=== PATIENT | male | born 1965 | race Caucasian/White ===

== ENCOUNTER 2016-09-10 13:58 | Emergency (ER) | payer MEDICARE ==
[2016-09-10 14:45] LABS: APPEARANCE CLEAR (CLEAR); BILIRUBIN NEGATIVE (NEGATIVE); COLOR YELLOW (YELLOW); GLUCOSE NEGATIVE (NEGATIVE); KETONE NEGATIVE (NEGATIVE); LEUKOCYTE ESTERASE NEGATIVE (NEGATIVE); NITRITE NEGATIVE (NEGATIVE); PROTEIN NEGATIVE (NEGATIVE); SPECIFIC GRAVITY 1.015 (1.005-1.020); UROBILINOGEN NORMAL (NORMAL)
[2016-09-10 14:46] LABS: BASOPHILS 0.7 % (0.0-2.0); EOSINOPHILS 1.3 % (0-7); HEMATOCRIT 45.6 % (42.0-54.0); HEMOGLOBIN 15.1 g/dL (13.5-17.5); IMMATURE GRANULOCYTES 0.5 % (0-5); LYMPHOCYTES 15.3 % (15-50); MCH 29.9 pg (26.0-34.0); MCHC 33.1 g/dL (31.0-37.0); MCV 90.3 fL (80.0-100.0); MEAN PLATELET VOLUME 8.8 fL (7.4-10.4); MONOCYTES 5.8 % (2-11); NEUTROPHILS 76.4 % (40-80); PLATELET COUNT 186 10x3/uL (130-400); RBC 5.05 10x6/uL (4.20-6.10); RDW 13.9 % (11.5-14.5); WBC 7.5 10x3/uL (4.8-10.8)
[2016-09-10 15:01] LABS: ALBUMIN 3.3 g/dL (3.4-5.0); ANION GAP 15.4 mmol/L (8-16); BILIRUBIN - TOTAL 0.27 mg/dL (0.2-1.3); CARBON DIOXIDE 24.1 mmol/L (21.0-32.0); CREATININE - SERUM 1.1 mg/dL (0.6-1.3); POTASSIUM - SERUM 3.5 mmol/L (3.5-5.1); PROTEIN - SERUM 6.9 g/dL (6.4-8.2)
[2016-09-10 15:03] LABS: UDS - AMPHET NEGATIVE QUAL (NEGATIVE); UDS - BARB NEGATIVE QUAL (NEGATIVE); UDS - BENZO POSITIVE QUAL (NEGATIVE); UDS - COCAINE NEGATIVE QUAL (NEGATIVE); UDS - METH NEGATIVE QUAL (NEGATIVE); UDS - OPIATE NEGATIVE QUAL (NEGATIVE); UDS - PCP NEGATIVE QUAL (NEGATIVE); UDS - THC NEGATIVE QUAL (NEGATIVE)
== END 2016-09-10 15:45 | disposition home or self-care (01) ==
LOC: D.ER 13:58
PROVIDERS: Emergency Medicine
DX: Z03.89 Encounter for observation for other suspected diseases and conditions ruled out (principal); F41.9 Anxiety disorder, unspecified; M54.9 Dorsalgia, unspecified; B20 Human immunodeficiency virus [HIV] disease

== ENCOUNTER 2017-04-10 13:37 | Emergency (ER) | payer MEDICARE ==
[2017-04-10 14:03] LABS: BASOPHILS 0.8 % (0-2); EOSINOPHILS 1.4 % (0-7); HEMOGLOBIN 16.9 g/dL (13.5-17.5); IMMATURE GRANULOCYTES 0.3 % (0-5); LYMPHOCYTES 23.9 % (15-50); MCH 31.9 pg (26.0-34.0); MCHC 34.5 g/dL (31.0-37.0); MCV 92.5 fL (80.0-100.0); MEAN PLATELET VOLUME 8.6 fL (7.4-10.4); MONOCYTES 7.6 % (2-11); PLATELET COUNT 223 10x3/uL (130-400); RDW 13.7 % (11.5-14.5); WBC 7.7 10x3/uL (4.8-10.8)
[2017-04-10 14:19] LABS: UDS - AMPHET NEGATIVE QUAL (NEGATIVE); UDS - BARB NEGATIVE QUAL (NEGATIVE); UDS - BENZO NEGATIVE QUAL (NEGATIVE); UDS - COCAINE NEGATIVE QUAL (NEGATIVE); UDS - METH NEGATIVE QUAL (NEGATIVE); UDS - OPIATE NEGATIVE QUAL (NEGATIVE); UDS - PCP NEGATIVE QUAL (NEGATIVE); UDS - THC NEGATIVE QUAL (NEGATIVE)
[2017-04-10 14:20] LABS: ALBUMIN 4.4 g/dL (3.4-5.0); ANION GAP 15.7 mmol/L (8-16); BILIRUBIN - TOTAL 0.58 mg/dL (0.2-1.3); CALCIUM 9.1 mg/dL (8.5-10.1); CARBON DIOXIDE 23.6 mmol/L (21.0-32.0); CREATININE - SERUM 1.3 mg/dL (0.6-1.3); POTASSIUM - SERUM 4.3 mmol/L (3.5-5.1)
[2017-04-10 14:31] LABS: APPEARANCE CLEAR (CLEAR); BACTERIA FEW /hpf (NONE SEEN); BILIRUBIN NEGATIVE (NEGATIVE); COLOR YELLOW (YELLOW); EPITHELIAL CELLS RARE /hpf (0-5); GLUCOSE NEGATIVE (NEGATIVE); KETONE NEGATIVE (NEGATIVE); LEUKOCYTE ESTERASE TRACE (NEGATIVE); NITRITE NEGATIVE (NEGATIVE); PROTEIN NEGATIVE (NEGATIVE); RED CELLS - URINE RARE /hpf (0-5); UROBILINOGEN NORMAL (NORMAL); WHITE CELLS - URINE RARE /hpf (0-5)
== END 2017-04-10 18:01 | disposition short-term general hospital (02) ==
LOC: D.ER 13:37
PROVIDERS: Family Medicine
DX: F41.9 Anxiety disorder, unspecified (principal); F33.9 Major depressive disorder, recurrent, unspecified; R45.851 Suicidal ideations; B20 Human immunodeficiency virus [HIV] disease; R45.1 Restlessness and agitation

== ENCOUNTER 2017-12-09 20:38 | Emergency (ER) | payer MEDICARE | END 2017-12-09 21:49 | disposition home or self-care (01) | LOC: D.ER 20:38 | DX: L02.414 Cutaneous abscess of left upper limb (principal); B20 Human immunodeficiency virus [HIV] disease ==

== ENCOUNTER 2017-12-11 19:53 | Emergency (ER) | payer MEDICARE | END 2017-12-11 22:09 | disposition home or self-care (01) | LOC: D.ER 19:53 | DX: L02.414 Cutaneous abscess of left upper limb (principal); B20 Human immunodeficiency virus [HIV] disease ==

== ENCOUNTER 2018-01-15 13:41 | Emergency (ER) | payer MEDICARE ==
[2018-01-15 14:06] LABS: BASOPHILS 0.5 % (0-2); EOSINOPHILS 1.8 % (0-7); HEMATOCRIT 45.7 % (42.0-54.0); HEMOGLOBIN 15.5 g/dL (13.5-17.5); IMMATURE GRANULOCYTES 0.2 % (0-5); LYMPHOCYTES 26.8 % (15-50); MCH 31.1 pg (26.0-34.0); MCHC 33.9 g/dL (31.0-37.0); MCV 91.6 fL (80.0-100.0); MONOCYTES 5.4 % (2-11); NEUTROPHILS 65.3 % (40-80); PLATELET COUNT 232 10x3/uL (130-400); RBC 4.99 10x6/uL (4.20-6.10)
[2018-01-15 14:37] LABS: ALBUMIN 3.8 g/dL (3.4-5.0); ALKALINE PHOSPHATASE 126 U/L (46-116); ALT (SGPT) 63 U/L (10-68); BILIRUBIN - TOTAL 0.64 mg/dL (0.2-1.3); CALC OSMOLALITY 287 mosm/kg (275-300); CALCIUM 9.4 mg/dL (8.5-10.1); CARBON DIOXIDE 26.9 mmol/L (21.0-32.0); CHLORIDE - SERUM 106 mmol/L (98-107); CREATININE - SERUM 1.4 mg/dL (0.6-1.3); GLUCOSE 100 mg/dL (74-106); POTASSIUM - SERUM 3.9 mmol/L (3.5-5.1); PROTEIN - SERUM 7.1 g/dL (6.4-8.2); SODIUM 145 mmol/L (136-145); UREA NITROGEN 10 mg/dL (7-18); eGFR NON AFRICAN AMERICAN 56 mL/min (90-120)
[2018-01-15 14:45] LABS: AMYLASE - SERUM 48 U/L (25-115); CKMB 0.6 U/L (0.0-3.6); CREATINE KINASE 73 UL (21-232); LIPASE 96 U/L (73-393)
[2018-01-15 14:46] LABS: TROPONIN-I < 0.017 ng/mL (0.000-0.060)
== END 2018-01-15 16:47 | disposition home or self-care (01) ==
LOC: D.ER 13:41
PROVIDERS: Family Medicine
DX: M79.1 Myalgia (principal); V49.9XXA Car occupant (driver) (passenger) injured in unspecified traffic accident, initial encounter; Y93.55 Activity, bike riding; Y92.410 Unspecified street and highway as the place of occurrence of the external cause; B20 Human immunodeficiency virus [HIV] disease

== ENCOUNTER 2018-01-26 16:40 | Emergency (ER) | payer MEDICARE ==
[~2018-01-26] VITALS: Ht 182.9 cm; Wt 103.6 kg
[2018-01-26 16:52] VITALS: Ht 182.9 cm; Wt 103.6 kg
[2018-01-26 17:09] LABS: APPEARANCE CLEAR (CLEAR); COLOR YELLOW (YELLOW)
[2018-01-26 17:10] LABS: BILIRUBIN NEGATIVE (NEGATIVE); GLUCOSE NEGATIVE (NEGATIVE); KETONE NEGATIVE (NEGATIVE); NITRITE NEGATIVE (NEGATIVE); PROTEIN NEGATIVE (NEGATIVE); SPECIFIC GRAVITY 1.025 (1.005-1.020); UROBILINOGEN NORMAL (NORMAL)
[2018-01-26 17:12] LABS: BACTERIA FEW /hpf (NONE SEEN); MUCUS >1+ /lpf (NONE SEEN); RED CELLS - URINE 0-5 /hpf (0-5); WHITE CELLS - URINE 0-5 /hpf (0-5)
[2018-01-26 17:21] LABS: UDS - AMPHET POSITIVE QUAL (NEGATIVE); UDS - BARB NEGATIVE QUAL (NEGATIVE); UDS - BENZO NEGATIVE QUAL (NEGATIVE); UDS - COCAINE NEGATIVE QUAL (NEGATIVE); UDS - OPIATE NEGATIVE QUAL (NEGATIVE); UDS - PCP NEGATIVE QUAL (NEGATIVE); UDS - THC NEGATIVE QUAL (NEGATIVE)
[2018-01-26 18:10] LABS: HEMATOCRIT 42.2 % (42.0-54.0); HEMOGLOBIN 13.9 g/dL (13.5-17.5); IMMATURE GRANULOCYTES 0.2 % (0-5); LYMPHOCYTES 23.7 % (15-50); MCH 30.4 pg (26.0-34.0); MCHC 32.9 g/dL (31.0-37.0); MCV 92.3 fL (80.0-100.0); MEAN PLATELET VOLUME 9.2 fL (7.4-10.4); MONOCYTES 7.6 % (2-11); NEUTROPHILS 64.5 % (40-80); PLATELET COUNT 246 10x3/uL (130-400); RBC 4.57 10x6/uL (4.20-6.10); RDW 13.9 % (11.5-14.5); WBC 6.3 10x3/uL (4.8-10.8)
[2018-01-26 18:14] LABS: ALBUMIN 3.6 g/dL (3.4-5.0); ANION GAP 9.9 mmol/L (8-16); BILIRUBIN - TOTAL 0.3 mg/dL (0.2-1.3); CALCIUM 9.2 mg/dL (8.5-10.1); CARBON DIOXIDE 28.9 mmol/L (21.0-32.0); CREATININE - SERUM 1.1 mg/dL (0.6-1.3); MAGNESIUM - SERUM 2.3 mg/dL (1.8-2.4); POTASSIUM - SERUM 3.8 mmol/L (3.5-5.1); PROTEIN - SERUM 6.5 g/dL (6.4-8.2)
[2018-01-26] MEDS ORDERED: AMBIEN10 MG (20:27)
[2018-01-26] MEDS ORDERED: GLUCOPHAGE500 MG (20:27)
[2018-01-26] MEDS ORDERED: HYDROCODONE-APA1 TAB PO (20:28)
[2018-01-26] MEDS ORDERED: TRIUMEQ TABLET1 EACH PO (20:28)
[2018-01-26] MEDS ORDERED: OMEPRAZOLE20 M1 PO (20:28)
[2018-01-26] MEDS ORDERED: PROZAC20 MG PO (20:28)
[2018-01-26] MEDS ORDERED: CYCLOBENZAPRINE10 MG PO (22:45)
[2018-01-26] MEDS ORDERED: METOPROLOL TART50 MG PO (22:45)
[2018-01-26] MEDS ORDERED: ZOLOFT100 MG PO (22:45)
[2018-01-26 23:42] VITALS: BP 151/83
== END 2018-01-27 03:07 ==
LOC: D.ER 16:40
PROVIDERS: Family Medicine
DX: F32.9 Major depressive disorder, single episode, unspecified (principal); F15.10 Other stimulant abuse, uncomplicated; R44.0 Auditory hallucinations; R45.851 Suicidal ideations; E11.9 Type 2 diabetes mellitus without complications; I10 Essential (primary) hypertension; Z86.59 Personal history of other mental and behavioral disorders; K21.9 Gastro-esophageal reflux disease without esophagitis; J45.909 Unspecified asthma, uncomplicated

== ENCOUNTER 2018-06-27 20:56 | Emergency (ER) | payer MEDICARE ==
[~2018-06-27] VITALS: Ht 182.9 cm; Wt 109.1 kg
[~2018-06-27 20:56] MED LIST: AMBIEN10 MG; CYCLOBENZAPRINE10 MG PO; GLUCOPHAGE500 MG; HYDROCODONE-APA1 TAB PO; METOPROLOL TART50 MG PO; OMEPRAZOLE20 M1 PO; PROZAC20 MG PO; TRIUMEQ TABLET1 EACH PO; ZOLOFT100 MG PO
[2018-06-27 21:05] VITALS: Ht 182.9 cm; Wt 109.1 kg
[2018-06-27] MEDS ORDERED: TORADOL10 MG PO (22:40)
[2018-06-27] MEDS ORDERED: CLEOCIN HCL300 MG PO (22:40)
[2018-06-28 01:40] VITALS: BP 162/88
== END 2018-06-28 01:40 | disposition home or self-care (01) ==
LOC: D.ER 20:56
DX: M54.5 Low back pain (principal); L03.011 Cellulitis of right finger; E11.9 Type 2 diabetes mellitus without complications; I10 Essential (primary) hypertension